=== PATIENT | female | born 1990 | race Caucasian/White ===

== ENCOUNTER 2017-03-22 13:46 | Outpatient (CLI) | payer OTHER ==
--- NOTE | 2017-03-22 16:05 | MRI Report ---
EXAM: MRI CERVICAL SPINE WITHOUT CONTRAST EXAM DATE: 03/22/2017 02:41 PM. CLINICAL HISTORY: Chronic neck pain. The pain radiates between the scapulae. Right finger numbness an d tingling. Right wrist and arm soreness. COMPARISONS: None. TECHNIQUE: Multiplanar, multisequence T1-weighted and fluid-sensitive sequences of the cervical spine without contrast. Other: None. FINDINGS: Neurologic Structures: The visualized posterior fossa structures are unremarkable. No signal abnormal ity in the visualized spinal cord. Alignment: Mild reversal of the cervical lordosis. Bone Marrow: No gross fractures or bone lesions. No marrow edema. Interspace Levels/Facets: C1-C2: Unremarkable. C2-C3: Unremarkable. C3-C4: Unremarkable. C4-C5: Tiny posterior central disk protrusion. No stenoses. C5-C6: Tiny posterior central disk protrusion. No stenoses. C6-C7: Unremarkable. C7-T1: Unremarkable. Musculature: Normal. No edema or fatty atrophy. Other: Small, probable nondominant right vertebral artery variant. Paravertebral soft tissues are oth erwise unremarkable. IMPRESSION: 1. Tiny posterior central disk protrusions at C4-C5 and C5-C6. No canal or foraminal stenoses. 2. Probable nondominant right vertebral artery variant. [facility] Referring Provider Line: [phone] SITE ID: [id number]
== END 2017-03-22 13:47 | disposition home or self-care (01) ==
LOC: DI 13:46
PROVIDERS: ATTEND General Practice
DX: M50.221 Other cervical disc displacement at C4-C5 level (principal)
CPT/HCPCS: 72141